=== PATIENT | female | born 1995 | race Caucasian/White ===

== ENCOUNTER 2017-07-09 13:02 | Emergency (ER) | payer SELFPAY | END 2017-07-09 14:36 | disposition left against medical advice (07) | LOC: UCCORT 13:02 | DX: R11.11 Vomiting without nausea (principal); R53.83 Other fatigue; Z53.21 Procedure and treatment not carried out due to patient leaving prior to being seen by health care provider ==

== ENCOUNTER 2018-01-21 08:38 | Emergency (ER) | payer BC ==
[2018-01-21 09:04] VITALS: BP 109/64
--- NOTE | 2018-01-21 09:21 | UC ---
Throat Pain/Nasal Oracio HPI - HPI Summary HPI Summary: The patient is a 22-year-old female with a one-day history of sore throat and fever. She has been able to tolerate liquids. There is been no nausea vomiting or diarrhea. She denies any chest pain or shortness of breath. - History of Current Complaint Chief Complaint: UCRespiratory Stated Complaint: SORE THROAT Time Seen by Provider: 01/21/18 09:14 Hx Obtained From: Patient Hx Last Menstrual Period: 01/11/18 Onset/Duration: Gradual Onset, Lasting Hours Severity: Worse Since: Pain Intensity: 10 Pain Scale Used: 0-10 Numeric Cough: None Associated Signs & Symptoms: Positive: Fever - Epiglottits Risk Factors Epiglottis Risk Factors: Negative - Allergies/Home Medications Allergies/Adverse Reactions: Allergies Allergy/AdvReac Type Severity Reaction Status Date / Time No Known Allergies Allergy Verified 01/21/18 09:00 PMH/Surg Hx/FS Hx/Imm Hx Previously Healthy: Yes - Surgical History Surgical History: None - Family History Known Family History: Negative: Cardiac Disease, Hypertension, Diabetes - Social History Alcohol Use: None Substance Use Type: None Smoking Status (MU): Never Smoked Tobacco Review of Systems All Other Systems Reviewed And Are Negative: Yes Constitutional: Positive: Fever Skin: Positive: Negative Eyes: Positive: Negative ENT: Positive: Sore Throat Respiratory: Positive: Negative Cardiovascular: Positive: Negative Gastrointestinal: Positive: Negative Genitourinary: Positive: Negative Motor: Positive: Negative Neurovascular: Positive: Negative Musculoskeletal: Positive: Negative Neurological: Positive: Negative Psychological: Positive: Negative Is Patient Immunocompromised?: Yes Physical Exam Triage Information Reviewed: Yes Appearance: Well-Appearing, No Pain Distress, Well-Nourished Vital Signs: Initial Vital Signs Temp 100.8 F 01/21/18 09:01 Pulse 111 01/21/18 09:01 Resp 16 01/21/18 09:01 BP 109/64 01/21/18 09:01 Pulse Ox 100 01/21/18 09:01 Eyes: Positive: Conjunctiva Clear ENT: Positive: Hearing grossly normal, Pharyngeal erythema, Uvula midline. Negative: Tonsillar swelling, Tonsillar exudate, Hoarse voice Dental Exam: Normal Neck: Positive: Supple, Enlarged Nodes @ - ant cerv Respiratory: Positive: Lungs clear, Normal breath sounds, No respiratory distress Cardiovascular: Positive: RRR, No Murmur Musculoskeletal: Positive: ROM Intact, No Edema Neurological: Positive: Alert Psychological Exam: Normal Skin Exam: Normal Diagnostics - Laboratory Diagnostic Studies Completed/Ordered: strep (-) Throat Pain/Nasal Course/Dx - Differential Dx/Diagnosis Provider Diagnoses: strep throat Discharge - Sign-Out/Discharge Documenting (check all that apply): Patient Departure All imaging exams completed and their final reports reviewed: No - Discharge Plan Condition: Stable Disposition: HOME Prescriptions: Amoxicillin PO (*) [Amoxicillin 875 MG (*)] 875 mg PO BID #20 tab Patient Education Materials: Strep Throat (ED) Referrals: No Primary Care Phys,NOPCP [Primary Care Provider] - Additional Instructions: rest tylenol or advil if needed recheck in 3-4 days if not completely better - Billing Disposition and Condition Condition: STABLE Disposition: Home
--- NOTE | 2018-01-21 14:53 | UC ---
Discharge - Sign-Out/Discharge Documenting (check all that apply): Post-Discharge Follow Up All imaging exams completed and their final reports reviewed: Yes - Discharge Plan Condition: Stable Disposition: HOME Prescriptions: Amoxicillin PO (*) [Amoxicillin 875 MG (*)] 875 mg PO BID #20 tab Patient Education Materials: Strep Throat (ED) Referrals: No Primary Care Phys,NOPCP [Primary Care Provider] - Additional Instructions: rest tylenol or advil if needed recheck in 3-4 days if not completely better - Billing Disposition and Condition Condition: STABLE Disposition: Home
== END 2018-01-21 09:26 | disposition home or self-care (01) ==
LOC: UCCORT 08:38
DX: J02.0 Streptococcal pharyngitis (principal); B95.0 Streptococcus, group A, as the cause of diseases classified elsewhere
CPT/HCPCS: 87651; 99212; G0463

== ENCOUNTER 2018-04-21 16:27 | Emergency (ER) | payer BC ==
[2018-04-21 18:02] VITALS: BP 101/63
--- NOTE | 2018-04-21 18:10 | UC ---
UC General HPI - HPI Summary HPI Summary: YESTERDAY SUDDEN ONSET HEADACHE, BODY ACHES, COUGH WITH CONGESTION AND SCRATCHY THROAT. +F/C'S. NO CP, SOB OR ASTHMA. - History of Current Complaint Chief Complaint: UCRespiratory Stated Complaint: FEVER,CHILLS,WOOTEN Time Seen by Provider: 04/21/18 17:53 Hx Obtained From: Patient Hx Last Menstrual Period: 04/14/18 Timing: Constant Pain Intensity: 5 Associated Signs & Symptoms: Negative: Abdominal Pain, Chest Pain, Diarrhea, Vomiting - Allergy/Home Medications Allergies/Adverse Reactions: Allergies Allergy/AdvReac Type Severity Reaction Status Date / Time No Known Allergies Allergy Verified 04/21/18 17:57 Home Medications: Home Medications NK [No Home Medications Reported] 04/21/18 [History Confirmed 04/21/18] PMH/Surg Hx/FS Hx/Imm Hx Previously Healthy: Yes - Surgical History Surgical History: None - Family History Known Family History: Positive: None Negative: Cardiac Disease, Hypertension, Diabetes - Social History Occupation: Student Alcohol Use: None Substance Use Type: None Smoking Status (MU): Never Smoked Tobacco - Immunization History Vaccination Up to Date: Yes Review of Systems All Other Systems Reviewed And Are Negative: Yes Constitutional: Positive: Fever, Chills, Fatigue Skin: Positive: Negative Eyes: Positive: Negative ENT: Positive: Sore Throat - SCRATCHY, Sinus Congestion Respiratory: Positive: Cough Cardiovascular: Positive: Negative Gastrointestinal: Positive: Negative Genitourinary: Positive: Negative Motor: Positive: Negative Neurovascular: Positive: Negative Musculoskeletal: Positive: Myalgia Neurological: Positive: Headache Psychological: Positive: Negative Physical Exam Triage Information Reviewed: Yes Appearance: Ill-Appearing - BUT NON TOXIC Vital Signs: Initial Vital Signs Temp 100.5 F 04/21/18 17:58 Pulse 125 04/21/18 17:58 Resp 16 04/21/18 17:58 BP 101/63 04/21/18 17:58 Pulse Ox 97 04/21/18 17:58 Vital Signs Reviewed: Yes Eyes: Positive: Conjunctiva Clear ENT: Positive: Pharynx normal, Nasal congestion, TMs normal, Uvula midline. Negative: Nasal drainage, Trismus, Muffled voice, Hoarse voice, Sinus tenderness Neck: Positive: Supple, Nontender, No Lymphadenopathy. Negative: Nuchal Rigidity Respiratory: Positive: Lungs clear, Normal breath sounds, No respiratory distress Cardiovascular: Positive: No Murmur, Brisk Capillary Refill, Tachycardia Abdomen Description: Positive: Nontender, No Organomegaly, Soft Bowel Sounds: Positive: Present Musculoskeletal: Positive: ROM Intact Neurological: Positive: Alert Psychological: Positive: Age Appropriate Behavior Skin Exam: Other - FLUSHED AND WARM. Course/Dx - Course Course Of Treatment: s/s's c/w local influenza. testing for flu will not change tx. risk/benefits of Tamiflu discussed. will not tx with Tamiflu. HR secondary to fever and flu. - Differential Dx - Multi-Symptom Differential Diagnoses: Other - influenza, viral syndrom, pneumonia. - Diagnoses Provider Diagnosis: Influenza-like illness Discharge - Sign-Out/Discharge Documenting (check all that apply): Patient Departure All imaging exams completed and their final reports reviewed: No Studies - Discharge Plan Condition: Stable Disposition: HOME Patient Education Materials: Influenza (DC) Forms: *School Release Referrals: DENISHA LARA [, APPLICATION, OTHER] - Additional Instructions: FOLLOW UP IF NOT BETTER IN 5 DAYS OR SOONER IF WORSE. - Billing Disposition and Condition Condition: STABLE Disposition: Home
== END 2018-04-21 18:14 | disposition home or self-care (01) ==
LOC: UCCORT 16:27
DX: J11.1 Influenza due to unidentified influenza virus with other respiratory manifestations (principal)
CPT/HCPCS: 99211; G0463